=== PATIENT | female | born 1955 | race Caucasian/White ===

== ENCOUNTER 2018-06-30 08:03 | Emergency (ER) | payer OTHER ==
[~2018-06-30] VITALS: Ht 157.5 cm; Wt 58.2 kg
[2018-06-30 08:06] VITALS: BP 146/78
[2018-06-30] MEDS ORDERED: ACETAMINOPHEN 500 MG TABLET ONE (08:20)
[2018-06-30] MEDS ORDERED: ASPIRIN 81 MG TABLET CHEW ONE (08:25)
[2018-06-30] MEDS ORDERED: HYDROcodone/APAP 5/325 TABLET PO ONE (08:30)
[2018-06-30] MEDS ORDERED: ASPIRIN 81 MG TABLET CHEW PO ONE (08:30)
[2018-06-30] MEDS ORDERED: ACETAMINOPHEN 500 MG TABLET PO ONE (08:30)
[2018-06-30] MEDS ORDERED: ACETAMINOPHEN 325 MG TABLET PO ONE (08:30)
[2018-06-30] MEDS ORDERED: ASPIRIN 325 MG TABLET PO PRN (08:30)
[2018-06-30] MEDS ORDERED: ASPIRIN 81 MG TABLET EC PO PRN (08:31)
== END 2018-06-30 09:08 | disposition home or self-care (01) ==
LOC: ED 09:02
DX: S90.01XA Contusion of right ankle, initial encounter (principal); X58.XXXA Exposure to other specified factors, initial encounter; Y93.89 Activity, other specified; Y92.410 Unspecified street and highway as the place of occurrence of the external cause; Y99.8 Other external cause status
CPT/HCPCS: 99284

== ENCOUNTER 2018-07-21 02:50 | Emergency (ER) | payer SELFPAY ==
[~2018-07-21] VITALS: Ht 160 cm; Wt 60.0 kg
[2018-07-21 03:08] VITALS: BP 148/77
== END 2018-07-21 04:00 | disposition home or self-care (01) ==
LOC: ED 03:02
DX: F41.1 Generalized anxiety disorder (principal); F32.0 Major depressive disorder, single episode, mild; F17.200 Nicotine dependence, unspecified, uncomplicated
CPT/HCPCS: 99284